=== PATIENT | male | born 1940 | race Caucasian/White ===

== ENCOUNTER 2017-10-26 14:57 | Emergency (ER) | payer OTHER ==
[2017-10-26 15:11] VITALS: BP 195/96
--- NOTE | 2017-10-26 16:07 | EDPHY ---
General - Diagnostics Imaging: Discussed imaging studies w/ mail caller Radiologist - History History Review: I reviewed the patient's medical records, I obtained additional history from the patient's family Smoking Status: Never smoked Time Seen by Provider: 10/26/17 16:06 Narrative: CHIEF COMPLAINT: Right calf pain and "bump" HISTORY OF PRESENT ILLNESS: Patient presents with complaints of pain and a "lump"in the right calf. He 1st noticed this 2 days ago while at rest. It is painful to him. Somewhat warm at the site. May have been slightly red recently. He says the symptoms have been steady without any worsening. He says that is not particularly worse when ambulating. He has no radiating pain. No numbness, tingling or weakness. No trauma or injury. No recent travel, surgery or history of venous thrombolic event. He has concern for possible DVT, although he does take Coumadin. He has no chest pain or shortness of breath. No pain in any other site. No other associated complaints or modifying factors ESTABLISHED ORTHOPEDIST: None REVIEW OF SYSTEMS: Ten systems reviewed and are negative unless otherwise noted in the HPI PAST MEDICAL HISTORY: Atrial fibrillation, hypertension. Anticoagulated with Coumadin PAST SURGICAL HISTORY: No recent surgical history SOCIAL HISTORY: Nonsmoker. Lives independently with his spouse FAMILY HISTORY: Noncontributory EXAMINATION General Appearance: Alert, no distress Cardiovascular: Symmetric DP PT pulses 2+. Good signs of perfusion of the right lower extremity with varicosities present both lower extremities. Neurological: A&O, light sensory symmetric in lower extremities. Strength is symmetric in the ankles and great toes. Skin: Warm and dry, no rash. Multiple varicosities and chronic venous stasis noted. Extremities: Minimal tenderness and small palpable firmness on the right catheter is slightly mobile superficial. I do not appreciate any palpable cord. There is symmetric, nonpitting 1+ pedal edema range of motion lower extremities symmetric. There is minimal pain with passive dorsiflexion of the right ankle. Psychiatric: Mood and affect normal DIFFERENTIAL DIAGNOSES: Including but not limited to DVT, superficial thrombophlebitis, varicosity, thrombosed varicosity, cyst MDM: 4:05 p.m. Pain with some mild redness and firmness to the right posterior calf. Patient expresses concern for DVT. I feel this is unlikely, but does have a palpable firmness that should be ruled out. More likely to be superficial thrombophlebitis versus cystic change. I have ordered ultrasound of the lower extremity rule out DVT. Vital signs are within normal limits. No SIRS criteria. Well-appearing. 5:00 p.m. Notified by radiologist Dr. Montero. Ultrasound is negative for DVT versus hematoma versus other nonspecific fluid collection change in the right calf. I have discussed with the patient. Given that we do not have a clear etiology, I do not feel it is safe to incise or explore this. It is non problematic from at this time. He will follow up with primary care physician further imaging care as needed. ED precautions for any redness, warmth, drainage or fever. SUPERVISION: This patient was independently evaluated without direct involvement of or examination by the attending physician. ED Precautions: Worsening pain. Erythema, edema, cyanosis, pallor, paresthesia or anesthesia. (Huang Hancock) Discussion: The patient was evaluated and managed by the Physician Optical Glass Etcher. My co- signature indicates that I have reviewed this chart and I agree with the findings and plan of care as documented. I am the secondary supervising physician. (Corin Pratt) - Objective Vital Signs: Initial Vital Signs Temperature (C) 36.6 C 10/26/17 15:09 Heart Rate 78 10/26/17 15:09 Respiratory Rate 16 10/26/17 15:09 Blood Pressure 195/96 H 10/26/17 15:09 O2 Sat (%) 92 10/26/17 15:09 O2 Delivery Mode Room Air Allergies/Adverse Reactions: No Known Allergies Allergy (Unverified 10/26/17 15:07) Home Medications: Medication Instructions Recorded Warfarin Sodium [Coumadin 2.5MG 2.5 mg PO DAILY16 12/03/11 (RX)] Aspirin 10/26/17 Atorvastatin Calcium 10/26/17 Metoprolol Tartrate 10/26/17 Triamterene-Hctz 37.5-25 mg Tb 10/26/17 Departure - Departure Disposition: Home, Routine, Self-Care Clinical Impression: Right calf pain Condition: Good Instructions: Cyst (ED) Additional Instructions: 1. Contact primary care physician for further imaging care 2. Return here for any fever, warmth, redness, drainage, chest pain or shortness of breath 3. Recommend that you discuss blood pressure medication with primary care physician. Referrals: Malgorzata Gibbons MD [Primary Care Provider] - As per Instructions
== END 2017-10-26 17:19 | disposition home or self-care (01) ==
DX: M79.661 Pain in right lower leg (principal); R22.41 Localized swelling, mass and lump, right lower limb; Z79.01 Long term (current) use of anticoagulants

== ENCOUNTER 2017-11-07 00:05 | Emergency (ER) | payer OTHER ==
[2017-11-07 00:15] VITALS: BP 168/90
--- NOTE | 2017-11-07 01:35 | EDPHY ---
H & P Stated Complaint: L HAND HEMATOMA,SWELL/HIT HAMMER ,ON COUMADIN Time Seen by Provider: 11/07/17 01:30 HPI/ROS: HPI CHIEF COMPLAINT: Left hand swelling, ecchymosis HISTORY OF PRESENT ILLNESS: This is a very pleasant 77-year-old male, has a history of AFib, on Coumadin, additionally hyperlipidemia presents emergency room left hand swelling. Patient states that he hit his left hand with a hammer on . It is now Tuesday morning. He initially developed some pain and swelling. Ecchymosis. However he states he felt rather fine no significant pain, no numbness or tingling. He went fishing this weekend. He has been using his left hand extensively. Decided come the emergency room due to increasing swelling ecchymosis. Again he has no pain. No numbness or tingling. Good radial pulse. Good cap refill. Mainly has swelling over the dorsum of the left hand. It is ecchymotic. They whole hand is swollen. No evidence of compartment syndrome on exam. Past Medical History: AFib on Coumadin, hyperlipidemia Past Surgical History: No recent surgery Social History: Denies daily use drugs alcohol tobacco. Family History: Noncontributory ROS REVIEW OF SYSTEMS: 10 Systems were reviewed and negative with the exception of the elements mentioned in the history of present illness. Exam Constitutional appears well nontoxic no acute distress triage nursing summary reviewed, vital signs reviewed, awake/alert. Eyes normal conjunctivae and sclera, EOMI, PERRLA. HENT normal inspection, atraumatic, moist mucus membranes, no epistaxis, neck supple/ no meningismus, no raccoon eyes. Respiratory clear to auscultation bilaterally, normal breath sounds, no respiratory distress, no wheezing. Cardiovascular rate normal, regular rhythm, no murmur, no edema, distal pulses normal. Gastrointestinal soft, non-tender, no rebound, no guarding, normal bowel sounds, no distension, no pulsatile mass. Genitourinary no CVA tenderness. Musculoskeletal Left hand: Ecchymosis present. Swelling noted diffusely left hand. Mainly swelling of the dorsum of the left hand. Hematoma present. Compartments are soft. Good cap refill, good radial pulse. No significant pain on exam. Full range of motion. Good bathroom tiling professional strength. no midline vertebral tenderness, full range of motion, no calf swelling, no tenderness of extremities, no meningismus, good pulses, neurovascularly intact. Skin pink, warm, & dry, no rash, skin atraumatic. Neurologic awake, alert and oriented x 3, AAOx3, moves all 4 extremities equally, motor intact, sensory intact, CN II-XII intact, normal cerebellar, normal vision, normal speech. Psychiatric normal mood/affect. Heme/Lymph/Immune no lymphadenopathy. Differential Diagnosis: Includes but is not limited to in a particular order left hand contusion, left hand sprain, fracture, bleeding on Coumadin, compartment syndrome Medical Decision Making: Plan for this patient x-ray left hand, check INR. Recommend ice pack. Most likely splint his left wrist and hand prevent micro trauma micro movements. This when he does not continue to bleed. I have discussed at length with him return precautions about increasing pain, swelling, numbness and tingling. He understands. Re-evaluation: INR level 2.75. X-ray of the left hand reviewed. No evidence of acute fracture. Image interpreted by myself. Patient be splinted comfortably to immobilize the wrist and hand due to micro movements possibly causing more trauma. Recommend he elevate and ice it. I did discussed return precautions with him about compartment syndrome. He understands return if he has eggs increasing pain, swelling, numbness or tingling. He has no pain at this time, compartments are soft, good radial pulse, good cap refill, no numbness or tingling. . Return precautions discussed. He understands. Follow up with Hand/Ortho. Source: Patient - Personal History Current Tetanus Diphtheria and Acellular Pertussis (TDAP): Yes - Medical/Surgical History Hx Asthma: No Hx Chronic Respiratory Disease: No Hx Diabetes: No Hx Cardiac Disease: Yes Hx Renal Disease: No Hx Cirrhosis: No Hx Alcoholism: No Hx HIV/AIDS: No Hx Splenectomy or Spleen Trauma: No Other PMH: afib ON COUMADIN, HTN, HIGH CHOL - Social History Smoking Status: Never smoked Constitutional: Initial Vital Signs Temperature (C) 36.7 C 11/07/17 00:13 Heart Rate 66 11/07/17 00:13 Respiratory Rate 16 11/07/17 00:13 Blood Pressure 168/90 H 11/07/17 00:13 O2 Sat (%) 92 11/07/17 00:13 O2 Delivery Mode Room Air Allergies/Adverse Reactions: No Known Allergies Allergy (Unverified 10/26/17 15:07) Home Medications: Medication Instructions Recorded Warfarin Sodium [Coumadin 2.5MG 2.5 mg PO DAILY16 12/03/11 (RX)] Aspirin 10/26/17 Atorvastatin Calcium 10/26/17 Metoprolol Tartrate 10/26/17 Triamterene-Hctz 37.5-25 mg Tb 10/26/17 Medical Decision Making - Data Points Laboratory Results: 11/07/17 01:36 PT 29.0 SEC H SEC (12.0-15.0) INR 2.75 H (0.83-1.16) APTT 35.4 SEC SEC (23.0-38.0) Departure - Departure Disposition: Home, Routine, Self-Care Clinical Impression: Hand contusion Qualifiers: Encounter type: initial encounter Laterality: left Qualified Code(s): S60.222A - Contusion of left hand, initial encounter Traumatic hematoma of hand Qualifiers: Encounter type: initial encounter Laterality: left Qualified Code(s): S60.222A - Contusion of left hand, initial encounter Condition: Good Instructions: Contusion in Adults (ED), Hematoma (ED) Additional Instructions: 1. Recommend ice. 2. Recommend elevation 3. Return emergency room if there is worsening symptoms questions or concerns includes worsening swelling, pain, numbness or tingling. Referrals: Malgorzata Gibbons MD [Primary Care Provider] - As per Instructions Jose Acuna MD [Medical Doctor] - As per Instructions
[2017-11-07 01:59] LABS: INR 2.75 (0.83-1.16)
== END 2017-11-07 02:43 | disposition home or self-care (01) ==
PROC: 2W3FX1Z Immobilization of Left Hand using Splint (ICD-10-PCS; principal; 2017-11-07)
DX: S60.222A Contusion of left hand, initial encounter (principal); W27.8XXA Contact with other nonpowered hand tool, initial encounter; Y92.9 Unspecified place or not applicable; Y93.9 Activity, unspecified; Y99.9 Unspecified external cause status
CPT/HCPCS: 29125; 73130; 99284; A4565